=== PATIENT | female | born 1955 | race Caucasian/White ===

== ENCOUNTER 2018-05-01 12:52 | Emergency (ER) | payer MEDICAID, SELFPAY ==
[2018-05-01] VITALS (8 sets, daily range): BP systolic 141–171; BP diastolic 62–95; PULSE 52–75; RESP 12–16; TEMP 36.8; O2SAT 92–99; BMI 30.2
--- NOTE | 2018-05-01 13:28 | CM.ED ---
Social Work Note Discuss with physician who wants crisis to evaluate as anticipates the pt will need geriatric psychiatric placements. Rosie Christianson, GEOGRAPHY INSTRUCTOR, RECEPTION INTERVIEWER
[2018-05-01 13:39] LABS: Absolute Lymphocyte Count 1.79 X10^3/ul (0.83-4.51); Absolute Neutrophil Count 2.4 X10^3/uL (2.0-7.7); Basophil# 0.07 X10^3/uL; Basophil% 1.5 % (0-1); Eosinophil# 0.07 X10^3/uL; Eosinophils% 1.5 % (0-5); Hematocrit 46.4 % (37-47); Hemoglobin 14.8 g/dl (12.0-15.0); Lymphocyte # 1.79 X10^3/ul (4.0); Lymphocyte % 38.1 % (19-41); Mean Corp Hgb Conc 31.9 g/gl (32-36); Mean Corpuscular Hgb 31.3 pg (27.0-32.0); Mean Corpuscular Volume 98.1 fL (81-99); Mean Platelet Vol. 9.6 fl (6.2-12.0); Monocyte# 0.39 X10^3/uL; Monocyte% 8.3 % (0-10); Neutrophil # 2.37 X10^3/uL (2.7-7.7); Neutrophil % 50.4 % (47-70); POSITIVE COUNT NO; POSITIVE DIFFERENTIAL NO; POSITIVE MORPHOLOGY NO; Platelet Count 167 K/mm3 (150-450); RBC Distribution Width CV 14.2 % (11.6-14.6); RBC Distribution Width SD 49.8 fl (35.1-43.9); Red Blood Count 4.73 M/mm3 (4.2-5.4); White Blood Count 4.7 K/mm3 (4.4-11.0)
[2018-05-01 13:52] LABS: ALB/GLOB Ratio 1.1 RATIO (0.9-2.4); AST(SGOT) 18 U/L (15-37); Alanine Aminotransfer ALT/SGPT 19 U/L (13-56); Albumin, Serum 3.4 g/dL (3.2-5.0); Alkaline Phosphatase 71 U/L (45-117); Anion Gap 2 (5-15); BUN 15 mg/dL (7-18); BUN/Creat Ratio 17.6 RATIO (10-20); Calcium,Total 8.7 mg/dL (8.5-10.1); Chloride 108 mmol/L (98-107); Creatinine, Serum 0.85 mg/dL (0.55-1.02); EST Glomerular Filtration Rate 72 mL/min (>60); Est Glom Filt Rate - Afr Amer 87 mL/min (>60); Estimated Creatinine Clearance 51.78 ml/min; Globulin 3.2 g/dL (2.2-4.2); Glucose 80 mg/dL (74-106); Potassium 3.7 mmol/L (3.5-5.1); Protein, Total 6.6 g/dL (6.4-8.2); Sodium Level 142 mmol/L (136-145)
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
[2018-05-01 15:46] LABS: Amphetamine Urine VISTA NEGATIVE (<1000 ng/mL); Barbiturate Urine VISTA NEGATIVE (< 200 ng/mL); Benzodiazepine Urine VISTA NEGATIVE (< 200 ng/mL); Cocaine Urine VISTA NEGATIVE (< 300 ng/mL); Ecstacy Urine VISTA NEGATIVE (< 500 ng/mL); Methadone Urine VISTA NEGATIVE (< 300 ng/mL); PCP Urine VISTA NEGATIVE (< 25 ng/mL); THC Urine VISTA NEGATIVE (< 50 ng/mL); Vista UDS pH Range 6
--- NOTE | 2018-05-01 16:45 | ED.RN ---
SPOKE WITH BONNY FROM CRISIS REGARDING PT, BONNY STATED THAT SHE IS LEAVING IN 10 MINUTES AND THAT WE NEED TO WAIT ON THE OTHER DIRECTOR HEART WHO IS CURRENTLY FINISHING UP WITH ANOTHER PT. PT WITH DR PEARCE REGARDING PT CONTINUING TO SAY SHE WANT TO SIGN OUT AMA, DR. PEARCE STATES SHE NEEDS TO SPEAK WITH CRISIS.
--- NOTE | 2018-05-01 16:54 | ED.RN ---
LAITH CALLED FROM THE [facility]SELING C[facility] AND SAID MARCO WOULD BE UP AROUND 6:30 TO SEE THE PATIENTS
--- NOTE | 2018-05-01 18:33 | ED.RN ---
SYLVIE IN ROOM WITH PT. NICODERM PATCH PLACED PER PT REQUEST
--- NOTE | 2018-05-01 19:21 | ED.RN ---
LEFT MESSAGE FOR [facility] TO RETURN RN'S CALL IN ED FOR PT TRANSPORT BACK TO FACILITY.
--- NOTE | 2018-05-01 20:43 | ED.RN ---
spoke with RN at [facility]- will fax dc papers and lab work results.
--- NOTE | 2018-05-01 20:46 | ED.DEP ---
ED Disposition - Plan for ED Patient: Disposition: Home or Assisted Living Instructions: ED Schizophrenia General Referrals: Counseling,Center [GROUP OF PHYSICIANS] - As soon as possible Additional Instructions: Follow-up with the counseling center
== END 2018-05-01 19:59 | disposition home or self-care (01) ==
PROVIDERS: Emergency Provider Emergency Medicine
DX: F29 Unspecified psychosis not due to a substance or known physiological condition (principal); J44.9 Chronic obstructive pulmonary disease, unspecified; I10 Essential (primary) hypertension; M19.90 Unspecified osteoarthritis, unspecified site; K21.9 Gastro-esophageal reflux disease without esophagitis; F20.9 Schizophrenia, unspecified; F31.9 Bipolar disorder, unspecified; F41.9 Anxiety disorder, unspecified; Z72.0 Tobacco use; Z79.82 Long term (current) use of aspirin; Z79.899 Other long term (current) drug therapy
CPT/HCPCS: 36415; 80053; 80307; 80320; 85025; 99284; G0480

== ENCOUNTER 2018-07-21 05:25 | Emergency (ER) | payer MEDICAID, SELFPAY ==
[2018-05-01 12:54] VITALS: BMI 30.2
[2018-07-21 05:28] VITALS: BP 128/61; PULSE 50; RESP 18; TEMP 36.7; O2SAT 98; BMI 24.0
--- NOTE | 2018-07-21 05:41 | EKG12_ITS ---
Test Reason : Blood Pressure : / mmHG Vent. Rate : 047 BPM Atrial Rate : 047 BPM P-R Int : 198 ms QRS Dur : 098 ms QT Int : 492 ms P-R-T Axes : 048 046 042 degrees QTc Int : 435 ms Sinus bradycardia with sinus arrhythmia Possible Left atrial enlargement Low voltage QRS Borderline ECG Confirmed by BESSY DAVE, DEISI ([id number]), editor managing director LUKE CASE ([id number]) on 07/24/2018 1:13:29 PM Referred By: EDUARDO Confirmed By:DEISI DOHERTY MD
--- NOTE | 2018-07-21 05:52 | RAD_ITS ---
STUDY: X-RAY CHEST REASON FOR EXAM: Female, 62 years old. Cough. TECHNIQUE: Single AP portable view of the chest. COMPARISON: Prior comparison studies are not available for review at this time. FINDINGS: There is hyperinflation of the lungs consistent with chronic obstructive lung disease (COPD). Bronchovascular markings are prominent in both lungs. There is no demonstrated pleural abnormality. There is borderline cardiomegaly. Normal mediastinum and yamilet. There is prominence of the pulmonary hilar arteries without peripheral pulmonary vascular congestion. There is atherosclerotic tortuosity of the aortic arch and descending thoracic aorta. There are diffuse degenerative changes of the visualized thoracic spine. There appears to be chondroid matrix in the proximal right humerus possibly secondary to low-grade chondroid lesion There is no demonstrated abnormality of the visualized soft tissue structures of the upper abdomen. RAD/Chest 1 View (Portable) IMPRESSION: COPD without radiographic evidence of acute cardiopulmonary disease. Electronically Signed: Maylin Peña MD at 6:20 EDT , Service support ,
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
[2018-07-21 06:13] LABS: Bacteria 0 SEEN /hpf (None Seen); Mucous, Urine 0 SEEN /hpf (<or=2+); Red Blood Cells-Urine 0 SEEN /hpf (0-5); Squamous Epithelial Cells - UA 0 SEEN /hpf (5-10); White Blood Cells 0 SEEN /hpf (0-5)
[2018-07-21 06:20] LABS: Amphetamine Urine VISTA NEGATIVE (<1000 ng/mL); Barbiturate Urine VISTA NEGATIVE (< 200 ng/mL); Benzodiazepine Urine VISTA NEGATIVE (< 200 ng/mL); Cocaine Urine VISTA NEGATIVE (< 300 ng/mL); Ecstacy Urine VISTA NEGATIVE (< 500 ng/mL); Methadone Urine VISTA NEGATIVE (< 300 ng/mL); PCP Urine VISTA NEGATIVE (< 25 ng/mL); THC Urine VISTA NEGATIVE (< 50 ng/mL); Vista UDS pH Range 6
[2018-07-21 06:26] LABS: Absolute Lymphocyte Count 1.88 X10^3/ul (0.83-4.51); Basophil# 0.06 X10^3/uL; Basophil% 1.3 % (0-1); Eosinophils% 2.2 % (0-5); Hematocrit 45.3 % (37-47); Hemoglobin 15.3 g/dl (12.0-15.0); Lymphocyte # 1.88 X10^3/ul (4.0); Lymphocyte % 41.9 % (19-41); Mean Corp Hgb Conc 33.8 g/gl (32-36); Mean Corpuscular Hgb 32.4 pg (27.0-32.0); Mean Platelet Vol. 9.9 fl (6.2-12.0); Monocyte# 0.46 X10^3/uL; Monocyte% 10.2 % (0-10); Neutrophil # 1.99 X10^3/uL (2.7-7.7); Neutrophil % 44.4 % (47-70); Platelet Count 165 K/mm3 (150-450); RBC Distribution Width SD 49.1 fl (35.1-43.9); Red Blood Count 4.72 M/mm3 (4.2-5.4); White Blood Count 4.5 K/mm3 (4.4-11.0)
[2018-07-21 06:31] LABS: Color, Urine Yellow (Yellow); Glucose, Dipstick Normal (Normal); Ketone-Dipstick Negative (Negative); Leukocyte Esterase-Dipstick 25 /ul (Negative); Nitrite-Dipstick Negative (Negative); Occult Blood-Urine Negative /ul (Negative); Protein-Dipstick Negative (Negative); Urine Bilirubin Dipstick Negative (Negative); Urine Clarity Clear (Clear); Urine Urobilinogen Normal (Normal); Urine pH 6.5 (5.0 - 8.0)
[2018-07-21 06:34] LABS: POSITIVE COUNT NO; POSITIVE DIFFERENTIAL NO; POSITIVE MORPHOLOGY NO
[2018-07-21 06:35] LABS: ALB/GLOB Ratio 1.2 RATIO (0.9-2.4); AST(SGOT) 20 U/L (15-37); Alanine Aminotransfer ALT/SGPT 18 U/L (13-56); Albumin, Serum 3.5 g/dL (3.2-5.0); Alkaline Phosphatase 68 U/L (45-117); Anion Gap 5 (5-15); BUN 10 mg/dL (7-18); BUN/Creat Ratio 12.1 RATIO (10-20); Calcium,Total 8.9 mg/dL (8.5-10.1); Chloride 106 mmol/L (98-107); Creatinine, Serum 0.83 mg/dL (0.55-1.02); EST Glomerular Filtration Rate 74 mL/min (>60); Est Glom Filt Rate - Afr Amer 90 mL/min (>60); Estimated Creatinine Clearance 63.24 ml/min; Glucose 84 mg/dL (74-106); Potassium 3.5 mmol/L (3.5-5.1); Protein, Total 6.5 g/dL (6.4-8.2); Sodium Level 141 mmol/L (136-145)
--- NOTE | 2018-07-21 07:28 | NURSING ---
CALLED CRISIS AND LEFT MESSAGE
[2018-07-21 08:14] VITALS: BP 138/74; PULSE 62; RESP 15; O2SAT 97
--- NOTE | 2018-07-21 08:47 | NURSING ---
CALLED CRISIS AND TALKED TO MARCO
[2018-07-21 09:34] VITALS: BP 132/67; PULSE 74; RESP 15; O2SAT 98
--- NOTE | 2018-07-21 10:06 | NURSING ---
MARIAN LARA, IS HERE
--- NOTE | 2018-07-21 10:35 | CM.ED ---
SOCIAL WORK UPDATED BY TECHNOLOGY ARCHITECTMARCO- PATIENT NOT APPROPRIATE FOR INPATIENT PSYCH. MARCO REPORTS UPDATED DR. TALBOT AND REQUESTS THIS WORKER FOLLOW UP FOR SAFE D/C PLANNING AND NEEDS. MET WITH PATIENT IN ROOM. THIS WORKER INTRODUCED TO PATIENT BY TECHNOLOGY ARCHITECT. EXPLAINED ROLE AND REASON FOR REFERRAL. PATIENT STATES RESIDES AT AN ASSISTED LIVING AT [facility]. PATIENT STATES SOMETIMES FEELS STAFF DOES NOT LIKE HER. PATIENT REPORTS DOES WISH TO RETURN TO [facility], BUT HAS BEEN LOOKING INTO OTHER ASSISTED LIVING LOCATIONS. PATIENT STATES HOPES TO FOLLOW UP WITH COUNSELOR, JESSENIA TODAY. CRISIS WAS TO CALL JESSENIA TO REQUEST VISIT. PATIENT GAVE PERMISSION FOR THIS WORKER TO CALL GILMAR, RESEARCH INTERVIEWER AT THE [facility] TO DISCUSS TRANSPORTATION AND FOLLOW UP. UPDATED DR. TALBOT ON THE ABOVE. PLAN: RETURN TO [facility] AT [facility].
--- NOTE | 2018-07-21 10:35 | ED.DEP ---
ED Disposition - Plan for ED Patient: Disposition: Home or Assisted Living Diagnosis: Depression, Suicide gesture Instructions: ED Depression Additional Instructions: Please follow-up with the social science research assistant at [facility] and with your primary care physician
--- NOTE | 2018-07-21 10:36 | DCINST.ED_ITS ---
ED Disposition - Plan for ED Patient: Disposition: Home or Assisted Living Diagnosis: Depression, Suicide gesture Instructions: ED Depression Additional Instructions: Please follow-up with the older adult social work specialist at [facility] and with your primary care physician
--- NOTE | 2018-07-21 11:00 | CM.ED ---
SOCIAL WORK CALL TO BOBBI WITH [facility]. 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 BOBBI REPORTS PATIENT IS ABLE TO RETURN AND REPORTS WOULD LIKE PATIENT TO FOLLOW UP WITH THE [facility]. BOBBI REPORTS PATIENT HAS AGREED IN THE PAST, BUT ON DAY OF APPOINTMENT WILL REFUSE TO GO. INFORMED BOBBI THIS WORKER WILL DISCUSS WITH PATIENT AND SET UP APPOINTMENT IF IN AGREEMENT. YANELI FRANCO, PHOTOFINISHING LABORATORY WORKER, DISTRICT OPERATIONS MANAGER.
--- NOTE | 2018-07-21 11:23 | CM.ED ---
SOCIAL WORK UPDATED BY NURSING [facility] TO TRANSPORT PATIENT BACK TO [facility]. MET WITH PATIENT IN ROOM AND UPDATED ON THIS WORKER'S CONVERSATION WITH BOBBI AT [facility]. PATIENT IN AGREEMENT TO FOLLOW UP WITH THE [facility]SELING CENTER. CALL TO THE [facility]SELING CENTER. APPOINTMENT SCHEDULED WITH DR. BATES FOR AUGUST 20, 2018 AT 1PM. CALL TO BOBBI TO UPDATE. BOBBI REQUESTING COPY OF CRISIS EVALUATION-THIS WORKER UPDATED MARCO AND CRISIS EVAL WAS FAXED. UPDATED BOBBI ON APPOINTMENT TIME AND DATE. THIS WORKER TO ASSIST WITH TRANSPORTATION THROUGH [facility] FOR APPOINTMENT ON 08/20. CALL TO [facility], LEFT MESSAGE FOR [facility] IN TRANSPORTATION. YANELI FRANCO, VIDEO GAME TESTER, RN NEUROSURGICAL.
[2018-07-21 11:30] VITALS: BP 145/89; PULSE 83; RESP 16; O2SAT 99
--- NOTE | 2018-07-21 13:45 | CM.ED ---
SOCIAL WORK RECEIVED CALL BACK FROM [facility] WITH [facility]. UPDATED ON PATIENT'S APPOINTMENT TIME AND DATE WITH THE [facility]SELING CENTER. [facility] TO FAX OVER APPLICATION TO PATIENT AT [facility] AND WILL FOLLOW UP WITH FRONT OFFICE ATTENDANT, BOBBI. YANELI FRANCO, JBOSS ARCHITECT, ASSISTANT INFANT TODDLER TEACHER.
== END 2018-07-21 11:55 | disposition home or self-care (01) ==
PROVIDERS: Emergency Provider Emergency Medicine
DX: F43.21 Adjustment disorder with depressed mood (principal); F60.3 Borderline personality disorder; R45.851 Suicidal ideations; R07.9 Chest pain, unspecified; G89.29 Other chronic pain; J44.9 Chronic obstructive pulmonary disease, unspecified; I25.10 Atherosclerotic heart disease of native coronary artery without angina pectoris; R00.1 Bradycardia, unspecified; M54.2 Cervicalgia; S05.11XD Contusion of eyeball and orbital tissues, right eye, subsequent encounter; X58.XXXD Exposure to other specified factors, subsequent encounter; Z79.82 Long term (current) use of aspirin; Z79.899 Other long term (current) drug therapy
CPT/HCPCS: 36415; 71045; 80053; 80307; 80320; 81001; 85025; 93005; 99285; G0480

== ENCOUNTER 2018-08-25 02:40 | Emergency (ER) | payer MEDICAID, SELFPAY ==
[2018-08-25] VITALS (14 sets, daily range): BP systolic 115–154; BP diastolic 47–94; PULSE 43–74; RESP 14–18; TEMP 36.7; O2SAT 90–99; BMI 27.4
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
--- NOTE | 2018-08-25 03:15 | RAD_ITS ---
STUDY: X-RAY CHEST REASON FOR EXAM: Female, 62 years old. Cough TECHNIQUE: Single AP portable view of the chest. COMPARISON: None. FINDINGS: The lungs are clear and expanded. There is no demonstrated pleural abnormality. Normal size heart. Normal mediastinum and yamilet. Normal visualized pulmonary arteries. There is atherosclerotic calcification of the aortic arch with tortuosity. Normal visualized thoracic spine. There is degenerative osteoarthritis of the bilateral shoulders. There is an enchondroma in the proximal metaphysis of the right humerus. There is no demonstrated abnormality of the visualized soft tissue structures of the upper abdomen. RAD/Chest 1 View (Portable) IMPRESSION: Degenerative changes, as described above. No demonstrated acute cardiopulmonary process. Electronically Signed: Sylvia Cardona, at 5:02 EDT Tel , Service support ,
[2018-08-25 03:24] LABS: Bacteria 0 SEEN /hpf (None Seen); Mucous, Urine 0 SEEN /hpf (<or=2+); Red Blood Cells-Urine 0 SEEN /hpf (0-5); Squamous Epithelial Cells - UA 0 SEEN /hpf (5-10); White Blood Cells 0 SEEN /hpf (0-5)
[2018-08-25 03:27] LABS: Color, Urine Yellow (Yellow); Glucose, Dipstick Normal (Normal); Ketone-Dipstick Negative (Negative); Leukocyte Esterase-Dipstick 100 /ul (Negative); Nitrite-Dipstick Negative (Negative); Occult Blood-Urine Negative /ul (Negative); Protein-Dipstick Negative (Negative); Specific Gravity, Urine 1.015 (1.002-1.030); Urine Bilirubin Dipstick Negative (Negative); Urine Clarity Clear (Clear); Urine Urobilinogen Normal (Normal); Urine pH 6.5 (5.0 - 8.0)
[2018-08-25 03:29] LABS: Absolute Lymphocyte Count 2.21 X10^3/ul (0.83-4.51); Absolute Neutrophil Count 5.4 X10^3/uL (2.0-7.7); Basophil# 0.05 X10^3/uL; Basophil% 0.6 % (0-1); Eosinophil# 0.09 X10^3/uL; Eosinophils% 1.1 % (0-5); Hematocrit 46.6 % (37-47); Lymphocyte # 2.21 X10^3/ul (4.0); Lymphocyte % 26.3 % (19-41); Mean Corp Hgb Conc 34.3 g/gl (32-36); Mean Corpuscular Hgb 32.6 pg (27.0-32.0); Mean Corpuscular Volume 94.9 fL (81-99); Mean Platelet Vol. 9.4 fl (6.2-12.0); Monocyte# 0.63 X10^3/uL; Monocyte% 7.5 % (0-10); Neutrophil # 5.41 X10^3/uL (2.7-7.7); Neutrophil % 64.4 % (47-70); Platelet Count 200 K/mm3 (150-450); RBC Distribution Width CV 13.6 % (11.6-14.6); RBC Distribution Width SD 47.1 fl (35.1-43.9); Red Blood Count 4.91 M/mm3 (4.2-5.4); White Blood Count 8.4 K/mm3 (4.4-11.0)
[2018-08-25 03:30] LABS: POSITIVE COUNT NO; POSITIVE DIFFERENTIAL NO; POSITIVE MORPHOLOGY NO
[2018-08-25 03:43] LABS: ALB/GLOB Ratio 1.1 RATIO (0.9-2.4); AST(SGOT) 17 U/L (15-37); Alanine Aminotransfer ALT/SGPT 18 U/L (13-56); Albumin, Serum 3.4 g/dL (3.2-5.0); Alkaline Phosphatase 67 U/L (45-117); Anion Gap 7 (5-15); BUN 12 mg/dL (7-18); BUN/Creat Ratio 15.7 RATIO (10-20); Calcium,Total 8.8 mg/dL (8.5-10.1); Chloride 108 mmol/L (98-107); Creatinine, Serum 0.76 mg/dL (0.55-1.02); EST Glomerular Filtration Rate 81 mL/min (>60); Est Glom Filt Rate - Afr Amer 98 mL/min (>60); Estimated Creatinine Clearance 69.06 ml/min; Globulin 3.1 g/dL (2.2-4.2); Glucose 76 mg/dL (74-106); Potassium 3.6 mmol/L (3.5-5.1); Protein, Total 6.5 g/dL (6.4-8.2); Sodium Level 145 mmol/L (136-145)
[2018-08-25 03:51] LABS: Amphetamine Urine VISTA NEGATIVE (<1000 ng/mL); Barbiturate Urine VISTA NEGATIVE (< 200 ng/mL); Benzodiazepine Urine VISTA NEGATIVE (< 200 ng/mL); Cocaine Urine VISTA NEGATIVE (< 300 ng/mL); Ecstacy Urine VISTA NEGATIVE (< 500 ng/mL); Methadone Urine VISTA NEGATIVE (< 300 ng/mL); PCP Urine VISTA NEGATIVE (< 25 ng/mL); THC Urine VISTA NEGATIVE (< 50 ng/mL); Vista UDS pH Range 6
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
--- NOTE | 2018-08-25 05:46 | ED.RN ---
CALLED CRISIS TO SEE THIS PT, BRAD IS TELECOMMUNICATIONS CLERK
--- NOTE | 2018-08-25 06:23 | ED.RN ---
CRISIS ON SITE AT [id number]
[2018-08-25] MEDS: Ibuprofen 600 MG Tablet PO (10:28)
[2018-08-25] MEDS: ARIPiprazole 10 MG Tablet PO (10:28)
[2018-08-25] MEDS: Metoprolol Tartrate 25 MG Tablet 12.5 MG PO ×2 (10:28→23:01)
[2018-08-25] MEDS: Multivitamins,Therapeutic Tablet 1 TABLET PO (10:28)
[2018-08-25] MEDS: Aspirin 81 MG TAB.CHEW PO (10:28)
[2018-08-25] MEDS: Sertraline 100 MG Tablet 200 MG PO (10:28)
--- NOTE | 2018-08-25 11:16 | ED.RN ---
TALKED TO ABHISHEK AT THE [facility]. SHE IS CHECKING WITH TISHA ON STATUS OF PATIENT.
--- NOTE | 2018-08-25 12:02 | ED.RN ---
MARCO CALLED FROM [facility] AND THEY ARE WORKING ON PLACEMENT
--- NOTE | 2018-08-25 18:36 | ED.RN ---
PER REQUEST OF LAITH FROM CRISIS, FAXED A MEDICATION AND ALLERGY LIST TO HER OFFICE
--- NOTE | 2018-08-25 18:49 | ED.RN ---
GREG MAXWELL CONTACTED BY A RN EARLIER, TO REQUEST [facility] CONTACT US REFERENCE THIS PT, CONTACT WAS MADE AND THEY WERE REQUESTED TO CONTACT CRISIS.
[2018-08-25] MEDS: clonazePAM 1 MG Tablet 2 MG PO (23:01)
[2018-08-25] MEDS: Atorvastatin Calcium 10 MG Tablet PO (23:01)
--- NOTE | 2018-08-25 23:20 | ED.RN ---
DR. RECINOS MADE AWARE OF PATIENT'S PULSE RATE OF 45 AND O2 SAT OF 90%. HE SAID TO GO AHEAD AND PUT HER ON THE LIBRARY CUSTOMER SERVICE CLERK AND GIVE HER O2 IF HER OXYGEN SAT DROPS BELOW 90. I WENT AHEAD AND PUT HER ON O2 AT 2L SINCE HER SAT DROPPED DOWN TO 89%. SHE IS NOW 94% ON 2L AND PULSE IS 44-50 AND IS NSR. SHE DID RECEIVED HER METOPROLOL PRIOR TO VITALS BEING TAKEN AND DR. RECINOS IS AWARE OF THIS ALSO.
[2018-08-26] VITALS (15 sets, daily range): BP systolic 127–165; BP diastolic 52–92; PULSE 44–60; RESP 15–23; TEMP 36.2; O2SAT 90–99
--- NOTE | 2018-08-26 07:28 | ED.RN ---
CALLED CRISIS; BONNY OR BRAD WILL CALL US BACK. WAS UNABLE TO SPEAK TO EITHER OF THEM.
--- NOTE | 2018-08-26 09:11 | NURSING ---
PT UP TO BATHROOM WITH SITTER. DIETARY CALLED FOR BREAKFAST TRAY.
--- NOTE | 2018-08-26 10:06 | ED.RN ---
PER KIKA SHE TALKED TO [facility] IN [place], THEY ARE WAITING ON D/C'S AND WILL CALL WITHIN AN HOUR OR SO TO LET US KNOW IF THEY ACCEPT THE PT OR NOT '
[2018-08-26] MEDS: Sertraline 100 MG Tablet 200 MG PO (10:25)
[2018-08-26] MEDS: ARIPiprazole 10 MG Tablet PO (10:26)
[2018-08-26] MEDS: Metoprolol Tartrate 25 MG Tablet 12.5 MG PO (10:26)
[2018-08-26] MEDS: Ibuprofen 600 MG Tablet PO (11:44)
--- NOTE | 2018-08-26 12:20 | ED.RN ---
PER KIKA WITH CRISIS; [facility] DECLINED PT, SHE IS GOING TO SUBMIT PAPERWORK TO [facility]
--- NOTE | 2018-08-26 14:00 | EKG12_ITS ---
Test Reason : STANDING EKG Blood Pressure : / mmHG Vent. Rate : 065 BPM Atrial Rate : 065 BPM P-R Int : 184 ms QRS Dur : 092 ms QT Int : 446 ms P-R-T Axes : 058 064 057 degrees QTc Int : 463 ms Normal sinus rhythm Possible Left atrial enlargement Borderline ECG Confirmed by NOBLE OGDEN ([id number]), development editor SELIN JULIAN ([id number]) on 08/27/2018 1:26:56 PM Referred By: LAWSON Confirmed By:NOBLE OGDEN
--- NOTE | 2018-08-26 14:30 | EKG12_ITS ---
Test Reason : MENTAL HEALTH Blood Pressure : / mmHG Vent. Rate : 038 BPM Atrial Rate : 038 BPM P-R Int : 194 ms QRS Dur : 088 ms QT Int : 476 ms P-R-T Axes : 036 068 049 degrees QTc Int : 378 ms Marked sinus bradycardia Abnormal ECG Confirmed by SARAH DAVE, SUZIE ([id number]), editor & co founder ROCKY ADRIAN ([id number] on 09/02/2018 11:47:34 AM Referred By: RAMSES Confirmed By:MALLORIE SMITH MD
--- NOTE | 2018-08-26 16:43 | NURSING ---
theresa from crisis in to see pt again.
--- NOTE | 2018-08-26 17:47 | NURSING ---
1730-pt requesting to call [facility]. when asked why pt became upset saying wants to talk with jong. shes my friend that works there jennifer painter called and spoke with jong and ok for phone call transfer. pt redirected that had to stay in room rather than in doorway d/t hippa. supper tray ordered for pt. sitter remains. still trying to get a bed at [facility] per theresa call worker person
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
[2018-08-26] MEDS: Nystatin Powder 15gm Bottle 1 APPLIC TOPICAL (18:27)
--- NOTE | 2018-08-26 18:30 | ED.RN ---
PER JOSE REFERRED TO [facility], NO ACCEPTANCE AT THIS TIME
[2018-08-26] MEDS: clonazePAM 1 MG Tablet 2 MG PO (22:04)
[2018-08-26] MEDS: Atorvastatin Calcium 10 MG Tablet PO (22:04)
[2018-08-27] VITALS: PULSE 53; RESP 18; O2SAT 97
[2018-08-27 01:00] VITALS: PULSE 53; RESP 18; O2SAT 97
--- NOTE | 2018-08-27 04:32 | ED.RN ---
SEE DOWNTIME PAPERWORK FROM [phone] TO [phone].
--- NOTE | 2018-08-27 04:41 | ED.RN ---
[facility] TO TRANSPORT ARRIVAL [phone]
[2018-08-27 05:00] VITALS: PULSE 59; RESP 17; O2SAT 97
[2018-08-27 06:00] VITALS: PULSE 59; RESP 19; O2SAT 97
--- NOTE | 2018-08-27 16:46 | ED.RN ---
Spoke to Clara at [facility] and informed her of the pt's transfer to [facility].
== END 2018-08-27 07:40 ==
PROVIDERS: Emergency Provider Emergency Medicine
DX: R45.851 Suicidal ideations (principal); J06.9 Acute upper respiratory infection, unspecified; M54.2 Cervicalgia; S20.111A Abrasion of breast, right breast, initial encounter; X58.XXXA Exposure to other specified factors, initial encounter; Y93.9 Activity, unspecified; Y92.9 Unspecified place or not applicable; Y99.9 Unspecified external cause status; I25.10 Atherosclerotic heart disease of native coronary artery without angina pectoris; J44.9 Chronic obstructive pulmonary disease, unspecified; R00.1 Bradycardia, unspecified; R11.0 Nausea; Z79.899 Other long term (current) drug therapy; Z72.0 Tobacco use
CPT/HCPCS: 36415; 71045; 80053; 80307; 80320; 81001; 85025; 93005; 99285; G0480

== ENCOUNTER 2018-09-29 21:00 | Emergency (ER) | payer MEDICAID, SELFPAY ==
[2018-08-25 02:49] VITALS: BMI 27.4
[2018-09-29 21:02] VITALS: BP 167/71; PULSE 63; RESP 16; TEMP 36.8; O2SAT 94; BMI 27.4
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
[2018-09-29 21:53] LABS: Amphetamine Urine VISTA NEGATIVE (<1000 ng/mL); Barbiturate Urine VISTA NEGATIVE (< 200 ng/mL); Benzodiazepine Urine VISTA NEGATIVE (< 200 ng/mL); Cocaine Urine VISTA NEGATIVE (< 300 ng/mL); Ecstacy Urine VISTA NEGATIVE (< 500 ng/mL); Methadone Urine VISTA NEGATIVE (< 300 ng/mL); PCP Urine VISTA NEGATIVE (< 25 ng/mL); THC Urine VISTA NEGATIVE (< 50 ng/mL); Vista UDS pH Range 6
[2018-09-29 22:02] LABS: Absolute Lymphocyte Count 1.93 X10^3/uL (0.83-4.51); Absolute Neutrophil Count 3.3 X10^3/uL (2.0-7.7); Basophil# 0.05 X10^3/uL; Basophil% 0.8 % (0-1); Eosinophils% 1.7 % (0-5); Hematocrit 44.5 % (37-47); Hemoglobin 14.7 g/dL (12.0-15.0); Lymphocyte # 1.93 X10^3/ul (4.0); Lymphocyte % 32.4 % (19-41); Mean Corpuscular Hgb 32.5 pg (27.0-32.0); Mean Corpuscular Volume 98.5 fL (81-99); Mean Platelet Vol. 9.4 fl (6.2-12.0); Monocyte# 0.56 X10^3/uL; Monocyte% 9.4 % (0-10); NRBC Flagged by Analyzer 0 % (0-5); Neutrophil # 3.31 X10^3/uL (2.7-7.7); Neutrophil % 55.5 % (47-70); Platelet Count 182 K/mm3 (150-450); RBC Distribution Width CV 14.5 % (11.6-14.6); RBC Distribution Width SD 52.8 fl (35.1-43.9); Red Blood Count 4.52 M/mm3 (4.2-5.4)
[2018-09-29 22:15] LABS: Anion Gap 7 (5-15); BUN 12 mg/dL (7-18); BUN/Creat Ratio 14.9 RATIO (10-20); Calcium,Total 8.5 mg/dL (8.5-10.1); Chloride 110 mmol/L (98-107); EST Glomerular Filtration Rate 77 mL/min (>60); Est Glom Filt Rate - Afr Amer 93 mL/min (>60); Estimated Creatinine Clearance 65.61 ml/min; Glucose 82 mg/dL (74-106); Potassium 3.5 mmol/L (3.5-5.1); Sodium Level 145 mmol/L (136-145)
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
[2018-09-29 23:00] VITALS: RESP 16
[2018-09-30] VITALS (8 sets, daily range): BP systolic 134–179; BP diastolic 61–86; PULSE 66–84; RESP 14–18; O2SAT 90–99
[2018-09-30] MEDS: Ibuprofen 600 MG Tablet PO (06:12)
[2018-09-30] MEDS: Aspirin 81 MG TAB.CHEW PO (07:58)
[2018-09-30] MEDS: Multivitamins,Therapeutic Tablet 1 TABLET PO (07:59)
[2018-09-30] MEDS: Calcium Carbonate 500 MG Tablet PO (07:59)
[2018-09-30] MEDS: Pantoprazole Sodium 20 MG Tablet PO (10:50)
[2018-09-30] MEDS: Sertraline 100 MG Tablet 200 MG PO (10:50)
[2018-09-30] MEDS: Metoprolol Tartrate 25 MG Tablet 12.5 MG PO ×2 (10:50→22:54)
[2018-09-30] MEDS: ARIPiprazole 10 MG Tablet PO (10:51)
[2018-09-30] MEDS: Citalopram 10 MG Tablet PO (10:51)
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
--- NOTE | 2018-09-30 12:46 | CM.ED ---
SOCIAL WORK CALL FROM TISHA WITH [facility]. PER TISHA, GOT STUCK AT THE OFFICE. WILL BE IN SHORTLY TO RE-ASSESS PATIENT. TISHA UPDATED ON THIS WORKER'S CONVERSATION WITH PATIENT. THIS WORKER TO FOLLOW UP ONCE TISHA IN DEPARTMENT. YANELI FRANCO, ENTERPRISE SALES PERSON, LEGAL INSTRUCTOR.
--- NOTE | 2018-09-30 12:53 | CM.ED ---
SOCIAL WORK UPDATED BY NURSING, PATIENT REQUESTING TO SPEAK WITH THIS WORKER. MET WITH PATIENT IN ROOM. PATIENT REQUESTING UPDATED ON PLAN. INFORMED PATIENT, TISHA FROM [facility] WOULD BE IN SOON TO MEET WITH PATIENT. PATIENT VERBALIZED UNDERSTANDING. NURSING UPDATED. YANELI FRANCO, RESIDENTIAL PROPERTY CONSULTANT, WIRE COILER.
--- NOTE | 2018-09-30 13:50 | CM.ED ---
SOCIAL WORK TISHA FROM [facility] HERE TO MEET WITH PATIENT. THIS WORKER SPOKE WITH ARY IN PATIENT REGISTRATION REGARDING POSSIBLE MEDICARE FOR PATIENT, PER ARY MAY NEED UPDATED ID. CALL TO [facility], SPOKE WITH ABHISHEK. PER ABHISHEK, PATIENT ONLY HAS MEDICAID. YANELI FRANCO, FOLEY ARTIST, SLEEVE SETTER LOCKSTITCH
[2018-09-30] MEDS: Acetaminophen 500 MG Tablet 1000 MG PO (14:29)
--- NOTE | 2018-09-30 16:00 | CM.ED ---
SOCIAL WORK TISHA FROM [facility] REPORTS REFERRAL TO BE MADE TO [facility], DOES NOT ANTICIPATE BED THIS DAY. PER TISHA, NURSE HAS BEEN UPDATED. WILL CONTINUE TO FOLLOW. PATIENT UPDATED ON PLAN. YANELI FRANCO, SCHOOL TRAFFIC GUARD, CREDIT RISK OFFICER.
--- NOTE | 2018-09-30 16:06 | EKG12_ITS ---
Test Reason : MEDICAL CLEARANCE Blood Pressure : / mmHG Vent. Rate : 049 BPM Atrial Rate : 049 BPM P-R Int : 202 ms QRS Dur : 090 ms QT Int : 448 ms P-R-T Axes : 054 060 054 degrees QTc Int : 404 ms Sinus bradycardia Otherwise normal ECG Confirmed by NOBLE OGDEN ([id number]), associate editor ROCKY ADRIAN ([id number] on 10/06/2018 11:33:14 AM Referred By: Confirmed By:NOBLE OGDEN
[2018-09-30 17:16] LABS: AST(SGOT) 17 U/L (15-37); Alanine Aminotransfer ALT/SGPT 16 U/L (13-56); Albumin, Serum 3.1 g/dL (3.2-5.0); Alkaline Phosphatase 65 U/L (45-117); Bilirubin, Direct 0.08 mg/dL (0.00-0.30); Protein, Total 6.1 g/dL (6.4-8.2)
[2018-09-30 17:18] LABS: Lipase 80 U/L (73-393)
[2018-09-30] MEDS: clonazePAM 1 MG Tablet 2 MG PO (20:39)
[2018-09-30] MEDS: Atorvastatin Calcium 10 MG Tablet PO (22:54)
--- NOTE | 2018-09-30 22:57 | ED.RN ---
pt resting quietly in bed, no signs of distress. meds and snack given, denies further needs.
[2018-10-01] VITALS: RESP 14
[2018-10-01 02:00] VITALS: RESP 14
[2018-10-01 04:00] VITALS: RESP 14
[2018-10-01 06:00] VITALS: RESP 14
--- NOTE | 2018-10-01 08:06 | NURSING ---
called crisis about checking with [facility] about patient being transferred
--- NOTE | 2018-10-01 08:08 | NURSING ---
BRAD, [facility]IS[facility], CALLED BACK. TISHA IS WORKING WITH PATIENT AND SHE HASN'T COME IN YET. HE WILL HAVE HER CALL US.
[2018-10-01 09:44] VITALS: BP 157/72; PULSE 57; O2SAT 95
[2018-10-01] MEDS: Ibuprofen 600 MG Tablet PO (10:15)
[2018-10-01] MEDS: Pantoprazole Sodium 20 MG Tablet PO (10:15)
[2018-10-01] MEDS: Sertraline 100 MG Tablet 200 MG PO (10:15)
[2018-10-01] MEDS: Citalopram 10 MG Tablet PO (10:15)
[2018-10-01] MEDS: Metoprolol Tartrate 25 MG Tablet 12.5 MG PO (10:16)
[2018-10-01] MEDS: ARIPiprazole 10 MG Tablet PO (10:16)
[2018-10-01] MEDS: Multivitamins,Therapeutic Tablet 1 TABLET PO (10:18)
[2018-10-01] MEDS: Aspirin 81 MG TAB.CHEW PO (10:18)
[2018-10-01] MEDS: Calcium Carbonate 500 MG Tablet PO (10:19)
[2018-10-01 10:41] VITALS: BP 145/74; PULSE 65; RESP 16; TEMP 36.8; O2SAT 93
--- NOTE | 2018-10-01 13:43 | CM.ED ---
SOCIAL WORK CALL TO SONAL ARROYO, PATIENTS GUARD ENTRANCE REGISTRAR THROUGH [facility] ON AGING DIRECTION [place]ANGE. UPDATED ON PATIENT'S D/C TO [facility] FOR CONTINUITY OF CARE. SONAL TO ASSIST WITH PATIENT'S D/C PLAN FROM [facility] TO [facility]. YANELI FRANCO, MANAGER LABOR RELATIONS, FRAME CLEANER.
== END 2018-10-01 10:42 ==
LOC: ED 22:03
PROVIDERS: Emergency Provider Emergency Medicine; Family Provider Internal Medicine; PCP Internal Medicine
DX: F20.0 Paranoid schizophrenia (principal); Z72.0 Tobacco use; Z79.82 Long term (current) use of aspirin; Z79.899 Other long term (current) drug therapy
CPT/HCPCS: 36415; 80048; 80076; 80307; 80320; 83690; 85025; 93005; 99285; G0480

== ENCOUNTER → 2020-11-08 05:00 | Outpatient (REF) | payer MEDICAID, SELFPAY ==
[2020-11-08 11:31] LABS: Valproic Acid (Depakene) Level 62 ug/mL (50-100)
[2020-11-08 11:44] LABS: Cholesterol 118 mg/dL (200); High Density Lipoprotein 40 mg/dL; Triglycerides 98 mg/dL; Very Low Density Lipoprotein 20 mg/dL (5-40)
== END ==
LOC: OLS.SANC 05:00
PROVIDERS: PCP Internal Medicine; Visit Provider Family Medicine
DX: F25.0 Schizoaffective disorder, bipolar type (principal); F31.9 Bipolar disorder, unspecified
CPT/HCPCS: 36415; 80061; 80164

== ENCOUNTER → 2020-12-23 05:00 | Outpatient (REF) | payer MEDICAID, SELFPAY ==
[2020-12-23 08:55] LABS: Absolute Lymphocyte Count 3.28 X10^3/uL (0.83-4.51); Absolute Neutrophil Count 2.7 X10^3/uL (2.0-7.7); Basophil# 0.05 X10^3/uL; Basophil% 0.7 % (0-1); Eosinophil# 0.03 X10^3/uL; Eosinophils% 0.4 % (0-5); Hematocrit 46.5 % (37-47); Hemoglobin 15.1 g/dL (12.0-15.0); Lymphocyte # 3.28 X10^3/ul (0.83-4.51); Lymphocyte % 49.1 % (19-41); Mean Corp Hgb Conc 32.5 g/dL (32-36); Mean Corpuscular Hgb 32.8 pg (27.0-32.0); Mean Corpuscular Volume 101.1 fL (81-99); Mean Platelet Vol. 9.7 fl (6.2-12.0); Monocyte# 0.59 X10^3/uL; Monocyte% 8.8 % (0-10); NRBC Flagged by Analyzer 0 % (0-5); Neutrophil # 2.72 X10^3/uL (2.7-7.7); Neutrophil % 40.9 % (47-70); Platelet Count 171 K/mm3 (150-450); RBC Distribution Width CV 13.8 % (11.6-14.6); White Blood Count 6.7 K/mm3 (4.4-11.0)
[2020-12-23 09:08] LABS: Anion Gap 5 (5-15); BUN 23 mg/dL (7-18); BUN/Creat Ratio 36.4 RATIO (10-20); Calcium,Total 8.9 mg/dL (8.5-10.1); Chloride 112 mmol/L (98-107); Creatinine, Serum 0.63 mg/dL (0.55-1.02); EST Glomerular Filtration Rate 100 mL/min (>60); Est Glom Filt Rate - Afr Amer 122 mL/min (>60); Glucose 75 mg/dL (74-106); Potassium 3.6 mmol/L (3.5-5.1); Sodium Level 145 mmol/L (136-145)
== END ==
LOC: OLS.SANC 05:00
PROVIDERS: PCP Internal Medicine; Visit Provider Family Medicine
DX: J44.9 Chronic obstructive pulmonary disease, unspecified (principal); I10 Essential (primary) hypertension
CPT/HCPCS: 36415; 80048; 85025; 87070; 87077; 87186; 87205

== ENCOUNTER → 2021-01-05 19:00 | Outpatient (REF) | payer MEDICAID, SELFPAY | LOC: OLS.SANC 19:00 | PROVIDERS: PCP Internal Medicine; Visit Provider Family Medicine | DX: J18.9 Pneumonia, unspecified organism (principal) | CPT/HCPCS: 87070; 87077; 87186; 87205 ==

== ENCOUNTER → 2021-02-06 05:00 | Outpatient (REF) | payer MEDICAID, SELFPAY ==
[2021-02-06 10:23] LABS: Hematocrit 49.7 % (37-47); Hemoglobin 15.7 g/dL (12.0-15.0); Mean Corp Hgb Conc 31.6 g/dL (32-36); Mean Corpuscular Hgb 32.8 pg (27.0-32.0); Mean Corpuscular Volume 103.8 fL (81-99); Mean Platelet Vol. 9.6 fl (6.2-12.0); Platelet Count 200 K/mm3 (150-450); RBC Distribution Width CV 15.1 % (11.6-14.6); RBC Distribution Width SD 58.7 fl (35.1-43.9); Red Blood Count 4.79 M/mm3 (4.2-5.4); White Blood Count 5.6 K/mm3 (4.4-11.0)
[2021-02-06 10:46] LABS: Valproic Acid (Depakene) Level 81 ug/mL (50-100)
== END ==
LOC: OLS.SANC 05:00
PROVIDERS: PCP Internal Medicine; Visit Provider Family Medicine
DX: F20.0 Paranoid schizophrenia (principal); I10 Essential (primary) hypertension; E78.5 Hyperlipidemia, unspecified
CPT/HCPCS: 36415; 80164; 85027

== ENCOUNTER → 2021-03-13 | Outpatient (REF) | payer MEDICAID, SELFPAY | END | disposition home or self-care (01) | LOC: OLS.SANC 10:00 | PROVIDERS: PCP Internal Medicine; Visit Provider Family Medicine | DX: R19.7 Diarrhea, unspecified (principal); J44.9 Chronic obstructive pulmonary disease, unspecified; F31.30 Bipolar disorder, current episode depressed, mild or moderate severity, unspecified; I10 Essential (primary) hypertension | CPT/HCPCS: 82274; 83630; 87177; 87209; 87506 ==

== ENCOUNTER → 2021-03-19 23:00 | Outpatient (REF) | payer MEDICAID, SELFPAY | LOC: OLS.SANC 23:00 | PROVIDERS: PCP Internal Medicine; Visit Provider Family Medicine | DX: J44.9 Chronic obstructive pulmonary disease, unspecified (principal); R05.9 Cough, unspecified | CPT/HCPCS: 87070; 87077; 87186; 87205 ==

== ENCOUNTER 2021-03-31 | Outpatient (REF) | payer MEDICAID, SELFPAY | END 2021-03-31 23:59 | disposition home or self-care (01) | LOC: OLS.SANC | PROVIDERS: PCP Internal Medicine; Visit Provider Family Medicine | DX: Z79.899 Other long term (current) drug therapy (principal) | CPT/HCPCS: 87070; 87205 ==

== ENCOUNTER 2021-04-14 11:00 | Outpatient (REF) | payer MEDICAID, SELFPAY | END 2021-04-14 23:59 | disposition home or self-care (01) | LOC: OLS.SANC 11:00 | PROVIDERS: PCP Internal Medicine | DX: D64.9 Anemia, unspecified (principal) | CPT/HCPCS: 82274 ==

== ENCOUNTER 2021-04-27 15:00 | Outpatient (REF) | payer MEDICAID, SELFPAY ==
[2021-04-28 08:16] LABS: Bacteria 0 SEEN /hpf (None Seen); Mucous, Urine 0 SEEN /hpf (<or=2+); Red Blood Cells-Urine 0 SEEN /hpf (0-5); Squamous Epithelial Cells - UA 0 SEEN /hpf (5-10); White Blood Cells 0 SEEN /hpf (0-5)
[2021-04-28 08:36] LABS: Color, Urine Yellow (Yellow); Glucose, Dipstick Normal (Normal); Ketone-Dipstick Negative (Negative); Leukocyte Esterase-Dipstick Negative /ul (Negative); Nitrite-Dipstick Negative (Negative); Occult Blood-Urine Negative /ul (Negative); Protein-Dipstick Negative (Negative); Specific Gravity, Urine 1.005 (1.002-1.030); Urine Bilirubin Dipstick Negative (Negative); Urine Clarity Clear (Clear); Urine Urobilinogen Normal (Normal)
== END 2021-04-27 23:59 | disposition home or self-care (01) ==
LOC: OLS.SANC 15:00
PROVIDERS: PCP Internal Medicine; Visit Provider Family Medicine
DX: M54.50 Low back pain, unspecified (principal); Z79.899 Other long term (current) drug therapy
CPT/HCPCS: 81001; 87086; 87088

== ENCOUNTER → 2021-05-08 | Outpatient (REF) | payer MEDICAID, SELFPAY ==
[2021-05-08 09:42] LABS: Cholesterol 165 mg/dL (200); High Density Lipoprotein 54 mg/dL; Triglycerides 119 mg/dL; Very Low Density Lipoprotein 24 mg/dL (5-40)
== END | disposition home or self-care (01) ==
LOC: OLS.SANC 05:00
PROVIDERS: PCP Internal Medicine; Visit Provider Family Medicine
DX: I10 Essential (primary) hypertension (principal); E78.5 Hyperlipidemia, unspecified
CPT/HCPCS: 36415; 80061

== ENCOUNTER → 2021-06-19 | Outpatient (REF) | payer MEDICAID, SELFPAY | END | disposition home or self-care (01) | LOC: OLS.SANC 05:00 | PROVIDERS: PCP Internal Medicine; Visit Provider Family Medicine | DX: E55.9 Vitamin D deficiency, unspecified (principal) | CPT/HCPCS: 36415; 82306 ==

== ENCOUNTER → 2021-08-21 04:00 | Outpatient (REF) | payer MEDICAID, SELFPAY ==
[2021-08-21 09:28] LABS: Hematocrit 44.1 % (37-47); Hemoglobin 14.5 g/dL (12.0-15.0); Mean Corp Hgb Conc 32.9 g/dL (32-36); Mean Corpuscular Hgb 34.6 pg (27.0-32.0); Mean Corpuscular Volume 105.3 fL (81-99); Mean Platelet Vol. 10.5 fl (6.2-12.0); Platelet Count 143 K/mm3 (150-450); RBC Distribution Width CV 12.7 % (11.6-14.6); RBC Distribution Width SD 49.2 fl (35.1-43.9); Red Blood Count 4.19 M/mm3 (4.2-5.4); White Blood Count 5.3 K/mm3 (4.4-11.0)
[2021-08-21 10:07] LABS: Valproic Acid (Depakene) Level 56 ug/mL (50-100)
== END ==
LOC: OLS.SANC 04:00
PROVIDERS: PCP Internal Medicine; Referring Provider Family Medicine; Visit Provider Family Medicine
DX: J44.9 Chronic obstructive pulmonary disease, unspecified (principal); I10 Essential (primary) hypertension; E78.5 Hyperlipidemia, unspecified
CPT/HCPCS: 36415; 80164; 85027